=== PATIENT | male | born 1990 | race Caucasian/White ===

== ENCOUNTER 2020-03-16 01:30 | Emergency (ER) | payer SELFPAY ==
[~2020-03-16] VITALS: Ht 175.3 cm; Wt 88.9 kg
--- NOTE | 2020-03-16 01:30 | NUR ---
EMELIA MCKEON, PREBOOK. TAKEN TO CHAIR A
[2020-03-16 01:31] VITALS: BP 117/89
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
--- NOTE | 2020-03-16 01:38 | NUR ---
Dr. Portillo examining patient.
[2020-03-16 01:53] VITALS: BP 117/89
--- NOTE | 2020-03-16 01:53 | NUR ---
PATIENT [facility] [employer] DEPT. PATIENT EXAMINED BY DR. NUÑEZ. PATIENT MEDICALLY CLEARED AND RELEASED IN CUSTODY IN STABLE CONDITION. ORIGINAL PRE-BOOK FORM GIVEN TO OFFICER [facility] #[id number].
== END 2020-03-16 01:53 ==
LOC: MED 01:30
DX: R00.0 Tachycardia, unspecified (principal); E11.9 Type 2 diabetes mellitus without complications; Z02.89 Encounter for other administrative examinations; V49.9XXA Car occupant (driver) (passenger) injured in unspecified traffic accident, initial encounter; Y93.89 Activity, other specified; Y92.89 Other specified places as the place of occurrence of the external cause; Y99.8 Other external cause status
CPT/HCPCS: 93005; 99283